=== PATIENT | female | born 1995 | race Caucasian/White ===

== ENCOUNTER → 2022-05-16 | Outpatient (CLI) | payer OTHER, SELFPAY ==
[2022-05-16 17:51] LABS: Absolute Lymphocyte Count 2.43 X10^3/uL (0.83-4.51); Absolute Neutrophil Count 3.6 X10^3/uL (2.0-7.7); Basophil# 0.05 X10^3/uL; Basophil% 0.7 % (0-1); Eosinophil# 0.27 X10^3/uL; Hematocrit 39.5 % (37-47); Lymphocyte # 2.43 X10^3/ul (0.83-4.51); Mean Corp Hgb Conc 32.9 g/dL (32-36); Mean Corpuscular Hgb 30.8 pg (27.0-32.0); Mean Corpuscular Volume 93.6 fL (81-99); Mean Platelet Vol. 9.6 fl (6.2-12.0); Monocyte# 0.36 X10^3/uL; Monocyte% 5.3 % (0-10); NRBC Flagged by Analyzer 0 % (0-5); Neutrophil # 3.63 X10^3/uL (2.7-7.7); Neutrophil % 53.9 % (47-70); Platelet Count 280 K/mm3 (150-450); RBC Distribution Width CV 12.4 % (11.6-14.6); RBC Distribution Width SD 42.7 fl (35.1-43.9); Red Blood Count 4.22 M/mm3 (4.2-5.4); White Blood Count 6.8 K/mm3 (4.4-11.0)
[2022-05-16 18:27] LABS: Progesterone Level 2.95 ng/mL (See Comment); Vitamin D,25 Hydroxy 76.6 ng/mL
[2022-05-16 19:28] LABS: ALB/GLOB Ratio 1.1 RATIO (0.9-2.4); AST(SGOT) 10 U/L (15-37); Alanine Aminotransfer ALT/SGPT 17 U/L (13-56); Albumin, Serum 3.8 g/dL (3.2-5.0); Alkaline Phosphatase 52 U/L (45-117); Anion Gap 8 (5-15); BUN 9 mg/dL (7-18); BUN/Creat Ratio 13.4 RATIO (10-20); Chloride 104 mmol/L (98-107); Creatinine, Serum 0.67 mg/dL (0.55-1.02); EST Glomerular Filtration Rate 111 mL/min (>60); Est Glom Filt Rate - Afr Amer 134 mL/min (>60); Estradiol 40.2 pg/mL; Ferritin 22 ng/mL (8-252); Follicle Stimulating Hormone 3.3 mIU/mL; Globulin 3.6 g/dL (2.2-4.2); Glucose 98 mg/dL (74-106); Iron 85 ug/dL (50-170); Iron Binding Capacity,Total 344 ug/dL (250-450); Luteinizing Hormone 6.9 mIU/mL; Potassium 3.5 mmol/L (3.5-5.1); Prolactin 6.3 ng/mL; Protein, Total 7.4 g/dL (6.4-8.2); Sodium Level 138 mmol/L (136-145); T4 Free Direct 0.94 ng/dL (0.76-1.46); Thyroid Stim Hormone (TSH) 0.91 uIU/mL (0.358-3.74)
[2022-05-22 10:07] LABS: Testosterone, % Free 1.56 % (0.50-2.80); Testosterone, Free 0.31 ng/dL (0.10-0.85); Testosterone, Total 20 ng/dL (13-71)
== END | disposition home or self-care (01) ==
DX: E55.9 Vitamin D deficiency, unspecified (principal); Z83.49 Family history of other endocrine, nutritional and metabolic diseases; N96 Recurrent pregnancy loss; Z83.41 Family history of multiple endocrine neoplasia [MEN] syndrome
CPT/HCPCS: 80053; 82306; 82533; 82627; 82670; 82728; 83001; 83002; 83540; 83550; 84144; 84146; 84270; 84402; 84403; 84439; 84443; 85025; 82626